=== PATIENT | female | born 1980 | race Caucasian/White ===

== ENCOUNTER 2018-04-26 19:59 | Emergency (ER) | payer OTHER ==
[~2018-04-26] VITALS: Ht 165.1 cm; Wt 82.2 kg
[2018-04-26] MEDS ORDERED: LORCET HD 10-321 TAB PO (20:18)
[2018-04-26] MEDS ORDERED: SOMA350 MG PO (20:19)
[2018-04-26] MEDS ORDERED: ATIVAN1 MG PO (20:19)
[2018-04-26 21:34] VITALS: BP 143/99
== END 2018-04-26 21:36 | disposition home or self-care (01) ==
LOC: ED 19:59
DX: G43.909 Migraine, unspecified, not intractable, without status migrainosus (principal); F17.210 Nicotine dependence, cigarettes, uncomplicated; R11.2 Nausea with vomiting, unspecified

== ENCOUNTER 2018-04-29 12:25 | Emergency (ER) | payer OTHER ==
[~2018-04-29] VITALS: Ht 165.1 cm; Wt 92.0 kg
[~2018-04-29 12:25] MED LIST: ATIVAN1 MG PO; LORCET HD 10-321 TAB PO; SOMA350 MG PO
[2018-04-29 14:33] VITALS: BP 164/90
== END 2018-04-29 14:32 | disposition home or self-care (01) ==
LOC: ED 12:25
DX: G43.909 Migraine, unspecified, not intractable, without status migrainosus (principal); F17.210 Nicotine dependence, cigarettes, uncomplicated

== ENCOUNTER 2024-05-24 07:43 | Day surgery (SDC) | payer OTHER ==
[~2024-05-24] VITALS: Ht 165.1 cm; Wt 79.4 kg
[~2024-05-24 07:43] MED LIST changes: +ATORVASTATIN CA40 MG PO; +BAYER ASPIRIN E81 MG PO; +BUPROPION HCL150 MG PO; +CLONAZEPAM0.5 M1 SL; +HYDROXYZ HCL50 MG PO; +K-TAB20 MEQ PO; +LISINOP/HCTZ1 TA2 PO; +LOPRESSOR25 M1 PO
[2024-05-24] MEDS ORDERED: SCOPOLAMINE 1.5 MG DIS TD ONE (07:55)
[2024-05-24] MEDS ORDERED: ONDANSETRON HCl 4 MG/2 ML SDV ONE (07:55)
[2024-05-24] MEDS ORDERED: LACTATED RINGER'S 1,000 ML IV ONE (07:56)
[2024-05-24 09:34] VITALS: BP 99/70
[2024-05-24] MEDS ORDERED: GLYCOPYRROLATE 0.2 MG/ML IV ONE (14:13)
[2024-05-24] MEDS ORDERED: MIDAZOLAM HCL 2 MG/2 ML VIAL IV ONE (14:13)
[2024-05-24] MEDS ORDERED: LIDOCAINE HCL 2% 2ML SDV IV ONE (14:13)
[2024-05-24] MEDS ORDERED: PROPOFOL 200 MG/20 ML VIAL IV ONE (14:13)
== END 2024-05-24 09:45 | disposition home or self-care (01) ==
LOC: ENDO 07:43 → ORM 11:40 → ENDO 11:40 → ORM 13:15
PROVIDERS: ATTEND Internal Medicine Gastroenterology
DX: K29.50 Unspecified chronic gastritis without bleeding (principal); B96.81 Helicobacter pylori [H. pylori] as the cause of diseases classified elsewhere; K21.00 Gastro-esophageal reflux disease with esophagitis, without bleeding

== ENCOUNTER 2024-06-07 08:54 | Day surgery (SDC) | payer OTHER ==
[~2024-06-07] VITALS: Ht 165.1 cm; Wt 79.4 kg
[~2024-06-07 08:54] MED LIST changes: +OMEPRAZOLE DR40 MG
[2024-06-07] MEDS ORDERED: ONDANSETRON HCl 4 MG/2 ML SDV ONE (09:15)
[2024-06-07] MEDS ORDERED: FAMOTIDINE 10MG/ML 2ML SDV IV ONE (09:15)
[2024-06-07] MEDS ORDERED: SCOPOLAMINE 1.5 MG DIS TD ONE (09:15)
[2024-06-07] MEDS ORDERED: LACTATED RINGER'S 1,000 ML IV ONE (09:16)
[2024-06-07 11:40] VITALS: BP 112/82
[2024-06-07] MEDS ORDERED: LIDOCAINE HCL 2% 2ML SDV IV ONE (15:48)
[2024-06-07] MEDS ORDERED: GLYCOPYRROLATE 0.2 MG/ML IV ONE (15:48)
[2024-06-07] MEDS ORDERED: MIDAZOLAM HCL 2 MG/2 ML VIAL IV ONE (15:48)
[2024-06-07] MEDS ORDERED: PROPOFOL 200 MG/20 ML VIAL IV ONE (15:48)
== END 2024-06-07 11:50 | disposition home or self-care (01) ==
LOC: ORM 08:54
PROVIDERS: ATTEND Internal Medicine Gastroenterology
DX: K52.9 Noninfective gastroenteritis and colitis, unspecified (principal); K64.8 Other hemorrhoids; K21.9 Gastro-esophageal reflux disease without esophagitis; I10 Essential (primary) hypertension; F41.9 Anxiety disorder, unspecified; E78.5 Hyperlipidemia, unspecified